=== PATIENT | female | born 2000 | race Hispanic/Latino ===

== ENCOUNTER 2020-04-04 16:51 | Inpatient (IN) | payer SELFPAY ==
[~2020-04-04] VITALS: Ht 157.5 cm; Wt 74.8 kg
[2020-04-04] MEDS ORDERED: SODIUM CHLORIDE 0.9% 1000ML 1,000 ML IV STA (17:23)
--- NOTE | 2020-04-04 17:23 | Emergency Department Note ---
History of Present Illnes History of Present Illness Chief Complaint: Abdominal Complaints History of Present Illness This is a 19 year old female presents to ED post 03/01/2020 presents to the ED for abd pain since yesterday 010. [address] [facility] for same issue yesterday , per patient through captain's assistant patient had lab work and US done Historian: Patient Arrival Mode: Car History limited by: language barrier Onset (how long ago): day(s) Radiation: Reports abdomen (RLQ) Severity: moderate Onset quality: gradual Duration (how long): day(s) Timing of current episode: constant Progression: worsening Chronicity: new Context: Reports recent surgery Relieving factors: immobilization Exacerbating factors: eating Associated symptoms: Reports nausea/vomiting Treatments prior to arrival: none Previous service: medications given, tests performed, re-evaluation Past Medical/Family History Physician Review I have reviewed the patient's past medical and family history. Any updates have been documented here. Past Medical History Recent Fever: No Clinical Suspicion of Infectio: No New/Unexplained Change in Ment: No Past Medical History: None Past Surgical History: None Social History Smoking Cessation: Never Smoker Alcohol Use: None Any Illegal Drug Use: No Review of Systems Review of Systems Constitutional: Reports no symptoms EENTM: Reports no symptoms Cardiovascular: Reports no symptoms Respiratory: Reports no symptoms Gastrointestinal: Reports abdominal pain (RLQ), Reports nausea, Reports vomiting Genitourinary: Reports other Musculoskeletal: Reports no symptoms Integumentary: Reports no symptoms Neurological: Reports no symptoms Psychological: Reports no symptoms Endocrine: Reports no symptoms Hematological/Lymphatic: Reports no symptoms Physical Exam Related Data Allergies: Coded Allergies: No Known Allergies (Unverified , 04/04/20) Vital signs reviewed: Yes Physical Exam CONSTITUTIONAL Constitutional: Present well-developed, Present well-nourished HENT HENT: Present normocephalic, Present atraumatic, Present oropharynx clear/mo ist, Present nose normal HENT L/R: Present left ext ear normal, Present right ext ear normal EYES Eyes: Reports PERRL, Reports conjunctivae normal NECK Neck: Present ROM normal PULMONARY Pulmonary: Present effort normal, Present breath sounds normal CARDIOVASCULAR Cardiovascular: Present heart sounds normal, Present tachycardia GASTROINTESTINAL Abdominal: Present soft, Present tender (RLQ) GENITOURINARY Genitourinary: Present exam deferred SKIN Skin: Present warm, Present dry MUSCULOSKELETAL Musculoskeletal: Present ROM normal NEUROLOGICAL Neurological: Present alert, Present oriented x 3, Present no gross motor or sensory deficits PSYCHOLOGICAL Psychological: Present mood/affect normal, Present judgement normal Results Laboratory Lab results reviewed: Yes Laboratory comments CBC : Hgb 8.1 , UCG neg Imaging Imaging results reviewed: Yes Impressions [place] [address] Patient Name: BONILLA HEREDIA MR #: [id number] : 2000 Age/Sex: 19/F Req #: [id number] Adm Physician: Ordered by: FAINA RUBI DO Report #: [id number] Location: [facility] Room/Bed: Procedure: [id number] HOPD/CT ABD/PEL WITH CONTRAST-HOPD Exam Date: 04/04/20 Exam Time: 1810 REPORT STATUS: Signed EXAM: CT Abdomen and Pelvis WITH contrast INDICATION: RLQ pain COMPARISON: None. TECHNIQUE: Abdomen and pelvis were scanned utilizing a multidetector helical scanner from the lung base to the pubic symphysis after administration of IV contrast. Coronal and sagittal reformations were obtained. Dose modulation, iterative reconstruction, and/or weight based adjustment of the mA/kV was utilized to reduce the radiation dose to as low as reasonably achievable. Routine protocol was performed. Scan was performed when during portal venous phase. IV CONTRAST: 150 mL of Omnipaque 300 ORAL CONTRAST: Water COMPLICATIONS: None RADIATION DOSE: Total DLP: 512.42 mGy-cm Estimated effective dose: (DLP x 0.015 x size factor) mSv CTDIvol has been reviewed. It is below the limits set by the Radiation Protocol Committee (RPC). FINDINGS: LINES and TUBES: None. LOWER THORAX: Unremarkable HEPATOBILIARY: No focal hepatic lesions. No biliary ductal dilation. GALLBLADDER: No radio-opaque stones or sludge. No gallbladder wall thickening. SPLEEN: No splenomegaly. No focal splenic lesion. PANCREAS: No focal masses or ductal dilatation. ADRENALS: No adrenal nodules KIDNEYS/URETERS: Kidneys enhance symmetrically. No hydronephrosis. No cystic or solid mass lesions. No stones. GI TRACT: The appendix is thick-walled demonstrate increased enhancement with adjacent inflammatory stranding compatible with acute appendicitis (series 2, images 56-65). No abnormal distention or evidence of bowel obstruction. PELVIC ORGANS/BLADDER: The bladder is unremarkable. There is a left adnexal cystic structure could be physiologic for age LYMPH NODES: No lymphadenopathy. VESSELS: No aortic aneurysm or dissection. PERITONEUM / RETROPERITONEUM: Small amount of free fluid in the pelvis. BONES: Unremarkable. SOFT TISSUES: Unremarkable. IMPRESSION: Acute appendicitis. Findings were discussed with Dr. Rubi at 6:56 PM on 04/04/2020. Signed by: Claudio Rascon MD on 04/04/2020 6:57 PM Dictated By: CLAUDIO RASCON MD 56 Transcribed By: IGNACIA on 04/04/201856 COPY TO: FAINA RUBI DO~ Assessment & Plan Medical Decision Making MDM Diff Dx : retained POC, eclampsia, appendicitis, ovarian cyst, ovarian torsion Assessment & Plan Final Impression: (1) Acute appendicitis Depart Disposition: ADMITTED Home Meds No Active Prescriptions or Reported Meds FAINA RUBI DO Apr 04, 2020 17:23
[2020-04-04] MEDS ORDERED: IOPAMIDOL 370 MG/ML 200 ML INFUS..BTL INJ ONE (17:45)
[2020-04-04] MEDS ORDERED: SODIUM CHLORIDE 0.9% 50ML 50 ML ONE (17:46)
[2020-04-04] MEDS ORDERED: SODIUM CHLORIDE 0.9% 1000ML 1,000 ML ONE (17:48)
--- NOTE | 2020-04-04 19:00 | Diagnostic Imaging Report ---
EXAM: CT Abdomen and Pelvis WITH contrast INDICATION: RLQ pain COMPARISON: None. TECHNIQUE: Abdomen and pelvis were scanned utilizing a multidetector helical scanner from the lung base to the pubic symphysis after administration of IV contrast. Coronal and sagittal reformations were obtained. Dose modulation, iterative reconstruction, and/or weight based adjustment of the mA/kV was utilized to reduce the radiation dose to as low as reasonably achievable. Routine protocol was performed. Scan was performed when during portal venous phase. IV CONTRAST: 150 mL of Omnipaque 300 ORAL CONTRAST: Water COMPLICATIONS: None RADIATION DOSE: Total DLP: 512.42 mGy-cm Estimated effective dose: (DLP x 0.015 x size factor) mSv CTDIvol has been reviewed. It is below the limits set by the Radiation Protocol Committee (RPC). FINDINGS: LINES and TUBES: None. LOWER THORAX: Unremarkable HEPATOBILIARY: No focal hepatic lesions. No biliary ductal dilation. GALLBLADDER: No radio-opaque stones or sludge. No gallbladder wall thickening. SPLEEN: No splenomegaly. No focal splenic lesion. PANCREAS: No focal masses or ductal dilatation. ADRENALS: No adrenal nodules KIDNEYS/URETERS: Kidneys enhance symmetrically. No hydronephrosis. No cystic or solid mass lesions. No stones. GI TRACT: The appendix is thick-walled demonstrate increased enhancement with adjacent inflammatory stranding compatible with acute appendicitis (series 2, images 56-65). No abnormal distention or evidence of bowel obstruction. PELVIC ORGANS/BLADDER: The bladder is unremarkable. There is a left adnexal cystic structure could be physiologic for age LYMPH NODES: No lymphadenopathy. VESSELS: No aortic aneurysm or dissection. PERITONEUM / RETROPERITONEUM: Small amount of free fluid in the pelvis. BONES: Unremarkable. SOFT TISSUES: Unremarkable. IMPRESSION: Acute appendicitis. Findings were discussed with Dr. Rubi at 6:56 PM on 04/04/2020. Signed by: Claudio Aguilar MD on 04/04/2020 6:57 PM
[2020-04-04] MEDS ORDERED: MORPHINE SULFATE INJ 4 MG/ML INJ 1ML IV STA (19:07)
--- NOTE | 2020-04-04 19:10 | NUR ---
[facility] NOTIFIED OF TRANSFER TO [facility], ETA 45 MINUTES
[2020-04-04] MEDS ORDERED: SODIUM CHLORIDE 0.9% 1000ML 1,000 ML IV SCH (19:15)
[2020-04-04] MEDS ORDERED: MORPHINE SULFATE INJ 4 MG/ML INJ 1ML IV PRN (19:15)
[2020-04-04] MEDS ORDERED: ONDANSETRON HCL INJ 2MG/ML 2ML 2 MG/ML VIAL IV PRN (19:15)
[2020-04-04] MEDS: PIPER-TAZ 3.375 GM 50 ML IV SCH (20:03)
--- NOTE | 2020-04-04 20:09 | NUR ---
ARC TRIMMER [id number] USED TO EXPLAIN PROCESS OF ADMISSION
--- OUTSIDE RECORDS SUMMARY | 2020-04-04 20:12 | XMS REPORT | Continuity of Care Document ---
Author Author [facility] t Organization [facility] Address [address] [place] [address] Phone Unavailable Care Team Providers Care Watch Crystal Grinder Name Role Phone FAINA RUBI Attphys Unavailable Majano ILEANA Tushar Kitty Attphys Problems This patient has no known problems. Allergies, Adverse Reactions, Alerts This patient has no known allergies or adverse reactions. Medications This patient has no known medications. Procedures This patient has no known procedures. Encounters Start Date/Time End Date/Time Encounter Type [facility] Encounter ID Source 2020-03-02 00:00:00 2020-03-02 00:00:00 Telephone Washing Kitty cordero [facility] FOUNDRY OPERATOR [facility] [id number] 2020-02-28 15:38:10 2020-02-28 16:24:26 Routine Visit Majano Kitty Tushar [facility] FOUNDRY OPERATOR [facility] [id number] 2020-02-17 16:00:06 2020-02-17 16:22:18 Routine Visit Majano Kitty Tushar [facility] FOUNDRY OPERATOR [facility] [id number] 2020-02-10 15:06:29 2020-02-10 16:20:54 Routine Visit Melecio Kitty [facility] FOUNDRY OPERATOR [facility] [id number] 2020-01-24 15:54:09 2020-01-24 16:29:22 Routine Visit Kitty Majano [facility] FOUNDRY OPERATOR [facility] [id number] Results Test Description Test Time Test Comments Results Result Comments Source CT ABD/PEL WITH CONTRAST-HOPD 2020-04-04 18:48:00 [place] [address] Patient Name: BONILLA HEREDIA MR #: [id number] : 2000 Age/Sex: 19/F Req #: [id number] Adm Physician: Ordered by: FAINA RUBI DO Report #: [id number] Location: [facility] Room/Bed: Procedure: [id number] HOPD/CT ABD/PEL WITH CONTRAST-HOPD Exam Date: 04/04/20 Exam Time: 1810 REPORT STATUS: Signed EXAM: CT Abdomen and Pelvis WITH contrast INDICATION: RLQ pain COMPARISON: None. TECHNIQUE: Abdomen and pelvis were scanned utilizing a multidetector helical scanner from the lung base to the pubic symphysis after administration of IV contrast. Coronal and sagittal reformations were obtained. Dose modulation, iterative reconstruction, and/or weight based adjustment of the mA/kV was utilized to reduce the radiation dose to as low as reasonably achievable. Routine protocol was performed. Scan was performed when during portal venous phase. IV CONTRAST: 150 mL of Omnipaque 300 ORAL CONTRAST: Water COMPLICATIONS: None RADIATION DOSE: Total DLP: 512.42 mGy-cm Estimated effective dose: (DLP x 0.015 x size factor) mSv CTDIvol has been reviewed. It is below the limits set by the Radiation Protocol Committee (RPC). FINDINGS: LINES and TUBES: None. LOWER THORAX: Unremarkable HEPATOBILIARY: No focal hepatic lesions. No biliary ductal dilation. GALLBLADDER: No radio-opaque stones or sludge. No gallbladder wall thickening. SPLEEN: No splenomegaly. No focal splenic lesion. PANCREAS: No focal masses or ductal dilatation. ADRENALS: N o adrenal nodules KIDNEYS/URETERS: Kidneys enhance symmetrically. No hydronephrosis. No cystic or solid mass lesions. No stones. GI TRACT: The appendix is thick-walled demonstrate increased enhancement with adjacent inflammatory stranding compatible with acute appendicitis (series 2, images 56-65). No abnormal distention or evidence of bowel obstruction. PELVIC ORGANS/BLADDER: The bladder is unremarkable. There is a left adnexal cystic structure could be physiologic for age LYMPH NODES: No lymphadenopathy. VESSELS: No aortic aneurysm or dissection. PERITONEUM / RETROPERITONEUM: Small amount of free fluid in the pelvis. BONES: Unremarkable. SOFT TISSUES: Unremarkable. IMPRESSION: Acute appendicitis. Findings were discussed with Dr. Rubi at 6:56 PM on 04/04/2020. Signed by: Claudio Rascon MD on 04/04/2020 6:57 PM Dictated By: CLAUDIO RASCON MD 56 Transcribed By: IGNACIA on 04/04/201856 COPY TO: FAINA RUBI DO
--- OUTSIDE RECORDS SUMMARY | 2020-04-04 20:16 | XMS REPORT | Continuity of Care Document ---
Author Author [facility] t Organization [facility] Address [address] [place] [address] Phone Unavailable Care Team Providers Care Medical Supervisor Name Role Phone FAINA RUBI Attphys Unavailable Majano ILEANA Tushar Kitty Attphys [phone] Problems This patient has no known problems. Allergies, Adverse Reactions, Alerts This patient has no known allergies or adverse reactions. Medications This patient has no known medications. Procedures This patient has no known procedures. Encounters Start Date/Time End Date/Time [facility] ID Source 2020-03-02 00:00:00 2020-03-02 00:00:00 Telephone Washing Kitty cordero [facility] RECORDS AND INFORMATION MANAGER [facility]ILD [facility] [id number] 2020-02-28 15:38:10 2020-02-28 16:24:26 Routine Visit Majano Kitty Tushar [facility] RECORDS AND INFORMATION MANAGER [facility] & [facility]ILD [facility] [id number] 2020-02-17 16:00:06 2020-02-17 16:22:18 Routine Visit Majano Kitty Tushar [facility] RECORDS AND INFORMATION MANAGER [facility] & CHILD [facility] [id number] 2020-02-10 15:06:29 2020-02-10 16:20:54 Routine Visit Melecio Kitty [facility] RECORDS AND INFORMATION MANAGER [facility] MATERNAL & CHILD [facility]ALTH [facility] [id number] 2020-01-24 15:54:09 2020-01-24 16:29:22 Routine Visit Kitty Majano [facility] RECORDS AND INFORMATION MANAGER [facility]NAL & CHILD [facility] [id number] Results Test Description Test Time Test Comments Results Result Comments Source CT ABD/PEL WITH CONTRAST-HOPD 2020-04-04 18:48:00 [place] [address] Patient Name: BONILLA HEREDIA MR #: [id number] : 2000 Age/Sex: 19/F Req #: [id number] Adm Physician: Ordered by: FAINA RUBI DO Report #: [id number] Location: [facility] Room/Bed: Procedure: [id number] HOPD/CT ABD/PEL WITH CONTRAST-HOPD Exam Date: 04/04/20 [...]
[2020-04-04 20:29] VITALS: BP 114/73
--- NOTE | 2020-04-04 20:29 | NUR ---
RECEIVED PATIENT FROM [facility] ED AT THIS TIME VIA EMS STRETCHER. PATIENT CITIZEN [place], [place] [id number] USED FOR ADMISSION. PATIENT A&OX3. PAIN 5/10, RECENTLY RECEIVED MORPHINE. NS @ 125 RUNNING TO R AC 20G, ASYMPTOMATIC. LUNG SOUNDS CLEAR. BOWEL SOUNDS ACTIVE. SKIN INTACT. PEDAL PULSES PALPABLE. NO TELE ORDERED. PATIENT ORIENTED TO ROOM AND PROCEDURES. BED LOCKED IN LOWEST POSITION, SIDE RAILS UPX2, CALL LIGHT IN REACH.
[2020-04-04 21:14] VITALS: BP 114/73
[2020-04-04] MEDS ORDERED: POTASSIUM CHLORIDE 20MEQ/100ML 100 ML IV ONE (21:15)
--- NOTE | 2020-04-04 21:26 | NUR ---
SPOKE WITH OYSTER HARVESTER ABOUT POSSIBILITY OF GETTING A BREAST PUMP. PATIENT BREASTFEEDS BUT DOES NOT OWN A PUMP. D/T UNKNOWN TIME SHE WILL STAY, THIS NURSE IS CONCERNED OF PATIENT DEVELOPING MASTITIS OR LOSING MILK SUPPLY IF PATIENT IS HERE FOR MULTIPLE DAYS. OYSTER HARVESTER STATED THEY WILL LOOK INTO IT. Addendum: 04/04/20 at 2356 by Avelina Howard RN PATIENT BREASTFEEDS AND D/T FINANCES WANTS TO CONTINUE TO BREASTFEED. PATIENT WORRIES ABOUT AMAYA OF BREAST PUMP. PATIENT WOULD LIKE TO ENSURE SHE GOES HOME ON MEDICATIONS THAT ARE SAFE IN BREAST MILK.
[2020-04-04 21:31] VITALS: BP 114/73
[2020-04-04] MEDS: KCL 20MEQ/.9 SOD CHL 1,000 ML IV SCH (22:00)
[2020-04-05] VITALS (8 sets, daily range): BP systolic 97–111; BP diastolic 54–80
[2020-04-05] MEDS: PIPER-TAZ 3.375 GM 50 ML IV SCH ×4 (01:56→21:00)
[2020-04-05 05:03] LABS: BASOPHILS % 0.3 % (0.0-1.0); EOSINOPHILS % 0.3 % (0.0-6.0); HEMATOCRIT 23.3 % (34.2-44.1); LYMPHOCYTES # (AUTO) 1.9 (1.0-3.2); LYMPHOCYTES % 27.4 % (18.0-39.1); MEAN CORPUSCULAR HEMOGLOBIN 23.6 pg (28-32); MEAN CORPUSCULAR VOLUME 78.5 fL (81-99); MONOCYTES # (AUTO) 0.7 (0.2-0.8); NEUTROPHILS # (AUTO) 4.4 (2.1-6.9); NEUTROPHILS % 61.4 % (38.7-80.0); PLATELET COUNT 238 x10e3/uL (140-360); RED BLOOD COUNT 2.97 x10e6/uL (3.6-5.1); RED CELL DISTRIBUTION WIDTH 15.9 % (11.7-14.4)
[2020-04-05 05:27] LABS: ALANINE AMINOTRANSFERASE 7 IU/L (0-55); ALBUMIN 3.8 g/dL (3.5-5.0); ALBUMIN/GLOBULIN RATIO 1.5 (0.8-2.0); ALKALINE PHOSPHATASE 94 IU/L (40-150); ANION GAP 15.6 mmol/L (8-16); BLOOD UREA NITROGEN 6 mg/dL (7-26); BUN/CREATININE RATIO 8 (6-25); CALCIUM 8.5 mg/dL (8.4-10.2); CARBON DIOXIDE 16 mmol/L (22-29); CHLORIDE 113 mmol/L (98-107); CREATININE, SERUM 0.77 mg/dL (0.57-1.11); EST GLOMERULAR FILTRATION RATE > 60 ML/MIN (60-); GLUCOSE 60 mg/dL (74-118); POTASSIUM 3.6 mmol/L (3.5-5.1); SODIUM 141 mmol/L (136-145)
[2020-04-05 07:05] LABS: ANISOCYTOSIS SLIGHT; PLATELET ESTIMATE ADEQUATE; PLATELET MORPHOLOGY COMMENT NORMAL; RBC MORPHOLOGY COMMENT ABNORMAL; SCHISTOCYTES RARE
[2020-04-05 07:06] LABS: ELLIPTOCYTE, RBC SLIGHT; OVALOCYTES FEW
[2020-04-05 07:44] LABS: % IRON SATURATION 3 % (15-50); IRON 11 ug/dL (50-170); TOTAL IRON BINDING CAPACITY 379 ug/dL (261-478); TRANSFERRIN 271 mg/dL (180-382)
--- NOTE | 2020-04-05 07:50 | History and Physical ---
SUBJECTIVE: This is a 19-year-old female who came into the emergency room with right-sided lower quadrant pain. The patient started with this pain about two days ago. The pain got relatively worse yesterday and the patient was not able to ambulate, causing pain, was found to have appendicitis, admitted to hospital for appendicitis and is scheduled for surgery for appendectomy. PAST MEDICAL HISTORY: Noncontributory. The patient recently had a first with live . MEDICATIONS: She takes at home none. Currently . SOCIAL HISTORY: No EtOH. No IV drug abuse. No history of smoking either. FAMILY HISTORY: Noncontributory. REVIEW OF SYSTEMS: Negative for chest pain. No shortness of breath. Positive for nausea. No vomiting or diarrhea. No constipation. No rectal bleeding. No hematochezia. No hematemesis. Positive for abdominal pain, right lower quadrant on ambulation. PHYSICAL EXAMINATION: VITAL SIGNS: On arrival temperature is 99.5, pulse of 110, respirations of 18, blood pressure is 117/71, and pulse oximetry of 100%. HEENT: Normocephalic, atraumatic. Pupils are reactive. No icterus present. CVS: S1 and S2 normal. Regular rate and rhythm. ABDOMEN: Tender in the right lower quadrant. Positive for rebound and some guarding. EXTREMITIES: No clubbing, no cyanosis, no edema. LABORATORY VALUES: Initial white count of 7000, hemoglobin of 7, hematocrit of 23.3. Sodium of 141, potassium of 3.6, BUN of 6 and creatinine 0.77. Serology; coronavirus is pending. Abdominal CT shows acute appendicitis. ASSESSMENT AND PLAN: This is Ms. Anjali Lawrence with: 1. Acute appendicitis. Plan is to take her to surgery. 2. Anemia, probably secondary to iron deficiency. Check iron levels. 3. Hypokalemia, replace. PLAN: Again will be surgery today. Further recommendation per clinical course. We will continue to monitor the patient. MD SUNDAY Cotton/ANIBAL /[id number]
[2020-04-05] MEDS: IRON SUCROSE 100 MG in SODIUM CHLORIDE 0.9% 100 ML 100 ML IV SCH (08:37)
[2020-04-05] MEDS: KCL 20MEQ/.9 SOD CHL 1,000 ML IV SCH ×2 (08:38→17:15)
--- NOTE | 2020-04-05 10:50 | NUR ---
Patient is provided a breast pump courtesy from Manager Front Office. Breast pump machine teaching is given. Verbalized understanding and received return demonstration.
[2020-04-05] MEDS ORDERED: SODIUM CHLORIDE 0.9% 250ML 250 ML ONE (11:41)
--- NOTE | 2020-04-05 11:54 | NUR ---
Blood transfusion started, VS stable prior to starting transfusion. Respiration even and unlabored. Denies SOB. Denies Discomfort and pain.
--- NOTE | 2020-04-05 12:09 | NUR ---
VS stable. No S/S of blood transfusion reaction noted. Denies SOB. Denies discomfort. Respiration even and unlabored without SOB.
--- NOTE | 2020-04-05 12:27 | NUR ---
Patient is taken to OR for surgery at this time. Report given to OR nurse Michelle. Blood transfusion is continued in OR.
[2020-04-05] MEDS ORDERED: LIDOCAINE 1% W/EPINEPHRINE 20 ML VIAL ONE (12:58)
[2020-04-05] MEDS ORDERED: ROCURONIUM BROMIDE 10 MG/ML 5ML VIAL IV ONE (13:14)
[2020-04-05] MEDS ORDERED: LIDOCAINE HCL 2% LOCAL INJ 5 ML SDV VIAL INJ ONE (13:14)
[2020-04-05] MEDS ORDERED: LIDOCAINE HCL 2% JELLY 5 ML TUBE ONE (13:14)
[2020-04-05] MEDS ORDERED: DEXAMETHASONE SOD PHOS INJ 4 MG/ML VIAL ONE (13:14)
[2020-04-05] MEDS ORDERED: ONDANSETRON HCL INJ 2MG/ML 2ML 2 MG/ML VIAL ONE (13:14)
[2020-04-05] MEDS ORDERED: GLYCOPYRROLATE INJ 0.2 MG/ML VIAL ONE (13:14)
[2020-04-05] MEDS ORDERED: SEVOFLURANE INHAL SOLN 250 ML PEN BTL ONE (13:14)
[2020-04-05] MEDS ORDERED: NEOSTIGMINE 1 MG/ML 10ML VIAL ONE (13:14)
[2020-04-05] MEDS ORDERED: PROPOFOL IV EMULSION 10 MG/ML 20 ML VIAL ONE (13:14)
[2020-04-05] MEDS ORDERED: FENTANYL CITRATE/PF 100MCG/2 ML INJ ONE ×2 (14:10→14:14)
[2020-04-05] MEDS ORDERED: MIDAZOLAM HCL 2 MG/2 ML VIAL ONE (14:14)
--- NOTE | 2020-04-05 14:45 | NUR ---
Patient is back from surgery. Respiration even and unlabored. 3 Trocar sites on abdomen with band aids, no bleeding. Denies pain. Call light in reach.
--- NOTE | 2020-04-05 14:58 | Consultation ---
DATE OF CONSULTATION: 04/05/2020 CHIEF COMPLAINT: Abdominal pain. HISTORY OF PRESENT ILLNESS: The patient is a 19-year-old female with 2-day history of pain in the right lower quadrant with some nausea, but no vomiting. No fever, chills, or diarrhea. PAST MEDICAL HISTORY: Negative. PAST SURGICAL HISTORY: Negative. The patient is status post normal vaginal delivery recently. ALLERGIES: SHE HAS NO DRUG ALLERGIES. SOCIAL HABITS: No smoking or alcohol abuse. REVIEW OF SYSTEMS: No chest pain, shortness of breath, cough, or fevers. PHYSICAL EXAMINATION: VITAL SIGNS: Stable. She is afebrile. GENERAL: She is awake, alert, in moderate discomfort. HEENT: Sclerae nonicteric. NECK: Supple. LUNGS: Clear. HEART: Regular rate and rhythm. ABDOMEN: Soft with some guarding tenderness in right lower quadrant with mild rebound. EXTREMITIES: No cyanosis or edema. LABORATORY DATA: White cell count is 7, hemoglobin of 7, and platelet count of 238. Creatinine is 0.7. Liver function tests unremarkable. CT scan of the abdomen show inflamed appendix. ASSESSMENT: Acute appendicitis. PLAN: Laparoscopic appendectomy. Attendant risks discussed. Asad Mccann MD DNTushar/MODTushar /[id number]
--- NOTE | 2020-04-05 19:00 | NUR ---
RECEIVED PATIENT IN BEDSIDE SHIFT REPORT. PATIENT RESTING IN BED AT THIS TIME. MILD PAIN REPORTED. NO S&S OF DISTRESS NOTED. BED LOCKED IN LOWEST POSITION, SIDE RAILS UPX2, CALL LIGHT IN REACH.
--- NOTE | 2020-04-05 22:30 | NUR ---
EDUCATION HANDOUTS IN [place] AND SUPPORT GROUP INFO GIVEN TO PATIENT VIA [employer] MANUFACTURING [place] [id number]. EDUCATED PATIENT ON IMPORTANCE OF CLEANING PUMP TO PREVENT BACTERIA GROWTH. PATIENT CLEANING PUMP AT THIS TIME.
[2020-04-06] VITALS: BP 118/78
[2020-04-06] MEDS: PIPER-TAZ 3.375 GM 50 ML IV SCH ×3 (02:40→14:30)
[2020-04-06 04:00] VITALS: BP 104/71
[2020-04-06] MEDS: KCL 20MEQ/.9 SOD CHL 1,000 ML IV SCH ×2 (06:05→14:30)
[2020-04-06] MEDS: IRON SUCROSE 100 MG in SODIUM CHLORIDE 0.9% 100 ML 100 ML IV SCH (06:05)
[2020-04-06 06:41] LABS: EOSINOPHILS % 0.2 % (0.0-6.0); HEMATOCRIT 25.9 % (34.2-44.1); LYMPHOCYTES # (AUTO) 1.3 (1.0-3.2); LYMPHOCYTES % 19.4 % (18.0-39.1); MEAN CORPUSCULAR HEMOGLOBIN 24.2 pg (28-32); MEAN CORPUSCULAR HGB CONC 30.9 g/dL (31-35); MEAN CORPUSCULAR VOLUME 78.2 fL (81-99); MONOCYTES # (AUTO) 0.5 (0.2-0.8); MONOCYTES % 7.7 % (4.4-11.3); NEUTROPHILS # (AUTO) 4.8 (2.1-6.9); NEUTROPHILS % 72.2 % (38.7-80.0); PLATELET COUNT 239 x10e3/uL (140-360); RED BLOOD COUNT 3.31 x10e6/uL (3.6-5.1); RED CELL DISTRIBUTION WIDTH 15.9 % (11.7-14.4)
[2020-04-06 06:59] LABS: ANION GAP 14.2 mmol/L (8-16); BLOOD UREA NITROGEN < 5 mg/dL (7-26); CALCIUM 8.9 mg/dL (8.4-10.2); CARBON DIOXIDE 17 mmol/L (22-29); CHLORIDE 110 mmol/L (98-107); CREATININE, SERUM 0.75 mg/dL (0.57-1.11); EST GLOMERULAR FILTRATION RATE > 60 ML/MIN (60-); GLUCOSE 87 mg/dL (74-118); POTASSIUM 4.2 mmol/L (3.5-5.1); SODIUM 137 mmol/L (136-145)
--- NOTE | 2020-04-06 07:00 | NUR ---
BEDSIDE SHIFT REPORT RECEIVED FROM X RAY CONTROL EQUIPMENT REPAIRER RN. PT DENIES NEEDS AT THIS TIME.
[2020-04-06 07:01] LABS: BUN/CREATININE RATIO 7 (6-25)
[2020-04-06 07:48] VITALS: BP 108/70
--- NOTE | 2020-04-06 08:16 | Progress Note ---
DATE: SUBJECTIVE: The patient is a 19-year-old female, who came in with appendicitis. The patient is status post appendectomy, doing well. No complaints. Abdominal pain is minimal on incision site, otherwise normal. Had not had a bowel movement yet. Urinating well. OBJECTIVE: VITAL SIGNS: Temperature is 98.1, pulse of 65, respirations of 18, blood pressure is 118/78. In's and Out's 480 mL intake and output is not recorded. LABORATORY VALUES: Pending from today. ASSESSMENT: Ms. Anjali Lawrence status post laparoscopic appendectomy for appendicitis and history of iron deficiency anemia. PLAN: Continue with same program. The patient has and also to 1 unit of PRBC. For further information, look into the chart. The patient can be discharged home today if it is okay with surgery. If she is able to tolerate diet as well. MD SUNDAY Cotton/ANIBAL /[id number]
[2020-04-06 09:06] VITALS: BP 108/70
[2020-04-06 12:00] VITALS: BP 103/74
--- NOTE | 2020-04-06 14:12 | NUR ---
OK FROM STANDPOINT OF DR. ROLLE FOR PT TO HI HOME.
[2020-04-06 15:00] VITALS: BP 95/58
--- NOTE | 2020-04-06 15:44 | NUR ---
DR. HERBERTH IZAGUIRRE FOR PT TO MD HOME.
[2020-04-06] MEDS ORDERED: FERROUS FUMARA324 MG (15:55)
--- NOTE | 2020-04-17 22:06 | Operative Report ---
DATE OF PROCEDURE: 04/17/2020 SURGEON: Asad Mccann MD PREOPERATIVE DIAGNOSIS: Appendicitis. POSTOPERATIVE DIAGNOSIS: Appendicitis. OPERATIVE PROCEDURE: Laparoscopic appendectomy. ANESTHESIA: General. INDICATION FOR SURGERY: A 19-year-old female with 1-day history of pain in the right lower quadrant with nausea. CT scan shows appendicitis. She consented for laparoscopic appendectomy. Attendant risks have been discussed. PROCEDURE FINDINGS: Acute appendicitis. DESCRIPTION OF PROCEDURE: The patient was brought to the OR, intubated. The abdomen was prepped and draped in sterile fashion. An infraumbilical incision was made and a 12 mm port inserted. Insufflation began under direct vision. Other ports sites placed in the suprapubic and the right upper quadrant. The appendix was localized, noted to be grossly inflamed, but not perforated. The appendix was retracted anteriorly and we proceeded to take down the mesoappendix with the LigaSure instrument down to the neck of the appendix, which was then controlled with the Endoloop ties of 0 PDS. The appendix was then amputated distal to the tie with the LigaSure instrument and the mucosa cauterized. The appendix placed Endopouch retrieved out of the peritoneal cavity. Operative field then irrigated. Hemostasis was achieved. All ports removed under direct vision. Fascia was closed with 0 Vicryl. Skin was closed with subcuticular stitch. The patient was extubated and transported to recovery room. Blood loss was less than 5 mL. Asad Mccann MD DNL/MODL /[id number]
== END 2020-04-06 17:18 | disposition home or self-care (01) | DRG 343 ==
LOC: FSED 16:57 → ERHOLD 19:11 → MED/SURG 20:37
PROVIDERS: ADMIT Family Medicine; ATTEND Family Medicine
PROC: 0DTJ4ZZ Resection of Appendix, Percutaneous Endoscopic Approach (ICD-10-PCS; principal; 2020-04-05 13:30)
DX: K35.80 Unspecified acute appendicitis (principal); Z11.59 Encounter for screening for other viral diseases; D50.9 Iron deficiency anemia, unspecified; E87.6 Hypokalemia
CPT/HCPCS: 36415; 74177; 80048; 80053; 81003; 81025; 82948; 83540; 84466; 85025; 86850; 86900; 86920; 88304; 96365; 96374; 99284; J1100; J1756; J2001; J2250; J2270; J2405; J2543; J2710; J3010; J3480; J7030; J7050; P9016; Q9967